=== PATIENT | female | born 1975 | race Caucasian/White ===

== ENCOUNTER 2021-11-01 11:08 | Emergency (ER) | payer SELFPAY ==
[~2021-11-01] VITALS: Ht 157.5 cm; Wt 57.6 kg
[2021-11-01] MEDS ORDERED: KETOROLAC 60 MG/2 ML VIAL IM ONE (11:50)
[2021-11-01] MEDS ORDERED: ONDANSETRON 4 MG ODT PO ONE (11:50)
[2021-11-01 11:58] LABS: BASOPHILS # (AUTO) 0.1 K/uL (0.00-0.22); BASOPHILS % (AUTO) 1.3 % (0.0-2.0); EOSINOPHILS # (AUTO) 0.1 K/uL (0-0.4); EOSINOPHILS % (AUTO) 0.9 % (0.0-4.0); HEMOGLOBIN 11.5 g/dL (12.0-16.0); LYMPHOCYTES # (AUTO) 1.5 K/uL (2.5-16.5); LYMPHOCYTES % (AUTO) 23.4 % (20.5-51.1); MEAN CORPUSCULAR HEMOGLOBIN 24 pg (27-31); MEAN CORPUSCULAR HGB CONC 32 g/dL (33-37); MEAN CORPUSCULAR VOLUME 75.4 fL (80-94); MONOCYTES # (AUTO) 0.3 K/uL (0.8-1.0); MONOCYTES % (AUTO) 5.2 % (1.7-9.3); NEUTROPHILS # (AUTO) 4.4 K/uL (1.8-7.7); NEUTROPHILS % (AUTO) 69.2 % (42.2-75.2); PLATELET COUNT (AUTO) 313 K/uL (140-450); RED BLOOD CELL COUNT(AUTO) 4.77 MIL/uL (4.20-5.40); RED CELL DISTRIBUTION WIDTH 17.4 % (11.6-13.7); WHITE BLOOD COUNT (AUTO) 6.4 K/uL (4.8-10.8)
[2021-11-01 11:59] VITALS: BP 115/71
[2021-11-01 12:30] LABS: ANION GAP 14.4 (8-16); CARBON DIOXIDE 23.3 mmol/L (21-32); CREATININE 0.7 mg/dL (0.6-1.3); POTASSIUM 3.7 mmol/L (3.5-5.1)
[2021-11-01 12:36] LABS: ALBUMIN 3.3 g/dL (3.4-5.0); TOTAL BILIRUBIN 0.3 mg/dL (0.0-1.0)
[2021-11-01] MEDS ORDERED: HYDROcodone/APAP 10/325 MG 1 TAB TAB PO ONE (13:30)
[2021-11-01] MEDS ORDERED: IBUP-2213 PO (15:28)
[2021-11-01] MEDS ORDERED: HYDR-5080 PO (15:28)
[2021-11-01 15:38] LABS: APPEARANCE,URINE CLEAR (CLEAR); BILIRUBIN,URINE NEGATIVE (NEGATIVE); BLOOD, URINE NEGATIVE (NEGATIVE); COLOR,URINE YELLOW (YELLOW); LEUKOCYTE ESTERASE ,URINE NEGATIVE (NEGATIVE); NITRITE, URINE NEGATIVE (NEGATIVE); PH,URINE 5.5 (5.0-9.0); UGLUCOSE NEGATIVE (NEGATIVE)
[2021-11-01] MEDS ORDERED: HYDROcodone/APAP 10/325 MG 1 TAB TAB ONE (15:43)
[2021-11-01 15:49] VITALS: BP 132/77
--- NOTE | 2021-11-01 15:49 | NUR ---
Patient discharged with v/s stable. Written and verbal after care instructions given and explained. Patient alert, oriented and verbalized understanding of instructions. Ambulatory with steady gait. All questions addressed prior to discharge. ID band removed. Patient advised to follow up with PMD. Rx of IBUPROFEN AND HYDROCDONE/ACETAMINOPHEN given. Patient educated on indication of medication including possible reaction and side effects. Opportunity to ask questions provided and answered.
== END 2021-11-01 15:49 | disposition home or self-care (01) ==
LOC: MED 11:08
DX: N20.0 Calculus of kidney (principal); Z88.8 Allergy status to other drugs, medicaments and biological substances
CPT/HCPCS: 36415; 76705; 80053; 81003; 83605; 83690; 85025; 96372; 99284; J1885; Q0092; Q0162

== ENCOUNTER 2021-12-25 03:40 | Emergency (ER) | payer MEDICAID ==
[~2021-12-25] VITALS: Ht 165.1 cm; Wt 68.0 kg
[~2021-12-25 03:40] MED LIST: HYDR-5080 PO; IBUP-2213 PO
--- NOTE | 2021-12-25 03:54 | NUR ---
AMBULATED TO BED #11
[2021-12-25] MEDS ORDERED: ONDANSETRON 4 MG/2 ML VIAL IVP ONE (03:55)
[2021-12-25] MEDS ORDERED: NACL 0.9% 1,000 ML IV ONE (03:55)
[2021-12-25] MEDS ORDERED: KETOROLAC 30 MG/ML VIAL IVP ONE (03:55)
[2021-12-25 03:59] VITALS: BP 133/89
[2021-12-25] MEDS ORDERED: MORPHINE SULFATE 4 MG/ML SYR IVP ONE (04:35)
[2021-12-25] MEDS ORDERED: ONDA8TAB87 PO ×2 (05:00→09:29)
[2021-12-25] MEDS ORDERED: TAMS0.4C96 PO ×2 (05:00→09:29)
[2021-12-25] MEDS ORDERED: IBUP-2213 PO ×2 (05:00→09:29)
[2021-12-25] MEDS ORDERED: ACET-8386 PO ×2 (05:00→09:29)
[2021-12-25 05:50] VITALS: BP 132/84
--- NOTE | 2021-12-25 05:50 | NUR ---
PATIENT CLEARED FOR DSIHCARGE AT THIS TIME. ADVISED TO FOLLOW UP WITH PCP AND RETURN IF CONDITION WORSENS. NO OTHER COMPLAINTS OR CONCERNS AT THS TIME FOLLOWING DISHCARGE TEAHCING.
== END 2021-12-25 05:50 | disposition home or self-care (01) ==
LOC: MED 03:40
DX: R10.9 Unspecified abdominal pain (principal); R11.2 Nausea with vomiting, unspecified
CPT/HCPCS: 81002; 81025; 96361; 96374; 96375; 99284; J1885; J2270; J2405; J7030